=== PATIENT | male | born 1960 | race Caucasian/White ===

== ENCOUNTER 2018-09-29 06:40 | Day surgery (SDC) | payer OTHER ==
[~2018-09-29] VITALS: Ht 170.2 cm; Wt 78.2 kg
[~2018-09-29 06:40] MED LIST: BECL10.6 IH; MELO-107 PO; NAPR220C15 PO; SODIUM CHLORIDE 0.9% 1,000 ML IV ONE
[2018-09-29] MEDS ORDERED: BENZOCAINE 20% 50 MCG/SPRAY 57 GM TP ONE (06:41)
[2018-09-29] MEDS ORDERED: SODIUM CHLORIDE 0.9% 1,000 ML IV ONE (07:00)
[2018-09-29] MEDS ORDERED: MIDAZOLAM HCL 2 MG/2 ML VIAL ONE (07:56)
[2018-09-29] MEDS ORDERED: FentaNYL CITRATE-PF 100 MCG/2 ML VIAL ONE (07:56)
== END 2018-09-29 09:40 | disposition home or self-care (01) ==
LOC: SURGERY 06:40
PROVIDERS: ATTEND Internal Medicine Critical Care Medicine
DX: R05 Cough (principal); Z53.8 Procedure and treatment not carried out for other reasons; R91.1 Solitary pulmonary nodule; J98.8 Other specified respiratory disorders
CPT/HCPCS: J2250; J3010; J7030

== ENCOUNTER 2018-12-10 06:44 | Day surgery (SDC) | payer OTHER ==
[~2018-12-10] VITALS: Ht 165.1 cm; Wt 80.0 kg
[2018-12-10] MEDS ORDERED: ALBUTEROL SULFATE 2.5 MG/0.5 ML NEB SOLUTION NEB ONE (06:45)
[2018-12-10] MEDS ORDERED: BENZOCAINE 20% 50 MCG/SPRAY 57 GM TP ONE (06:45)
[2018-12-10] MEDS ORDERED: LIDOCAINE 2% 30 ML JELLY TP ONE (06:45)
[2018-12-10] MEDS ORDERED: VARE0.5T PO (08:05)
[2018-12-10] MEDS ORDERED: FentaNYL CITRATE-PF 100 MCG/2 ML VIAL ONE (08:09)
[2018-12-10] MEDS ORDERED: MIDAZOLAM HCL 2 MG/2 ML VIAL ONE (08:09)
[2018-12-10] MEDS ORDERED: MethylPREDNISolone SOD SUCC 125 MG/2 ML VIAL IVP ONE (09:15)
[2018-12-10] MEDS ORDERED: MethylPREDNISolone SOD SUCC 125 MG/2 ML VIAL ONE (09:24)
[2018-12-10] MEDS ORDERED: OXYGEN THERAPY IH SCH (20:00)
== END 2018-12-10 10:50 | disposition home or self-care (01) ==
LOC: SURGERY 06:44
PROVIDERS: ATTEND Internal Medicine Critical Care Medicine
DX: J38.4 Edema of larynx (principal); B37.0 Candidal stomatitis; J44.9 Chronic obstructive pulmonary disease, unspecified; Z98.890 Other specified postprocedural states
CPT/HCPCS: 31623; 31624; 71045; 87015; 87070; 87101; 87205; 87206; 87220; 88108; 88312; J2250; J2930; J3010; J7030